=== PATIENT | male | born 1990 | race Caucasian/White ===

== ENCOUNTER 2021-04-10 19:10 | Emergency (ER) | payer OTHER ==
[~2021-04-10] VITALS: Ht 185.4 cm; Wt 91.9 kg
[2021-04-10 19:11] VITALS: BP 136/82
[2021-04-10] MEDS ORDERED: KETOROLAC TROMETHAMINE 10 MG TAB PO ONE (20:35)
[2021-04-10] MEDS ORDERED: AUGMENTIN 875 MG TAB PO ONE (20:35)
[2021-04-10] MEDS ORDERED: OXYCODONE/APAP 5MG/325MG(BULK FOR ED) 1 TABLET PO ONE (20:40)
[2021-04-10] MEDS ORDERED: AUGM875T28 PO (20:40)
== END 2021-04-10 21:03 | disposition home or self-care (01) ==
LOC: M ED 19:10
DX: K02.9 Dental caries, unspecified (principal); K04.7 Periapical abscess without sinus